=== PATIENT | female | born 1965 | race Caucasian/White ===

== ENCOUNTER 2018-11-26 15:00 | Outpatient (CLI) | payer OTHER ==
[2011-05-18 09:34] VITALS: BMI 33.6
== END 2018-11-26 15:30 | disposition home or self-care (01) ==
LOC: D.MAMMO 15:00
PROVIDERS: ATTEND Family Medicine
DX: N63.21 Unspecified lump in the left breast, upper outer quadrant (principal)

== ENCOUNTER → 2019-09-02 10:49 | Outpatient (CLI) | payer OTHER ==
[2011-05-18 09:34] VITALS: BMI 33.6
== END | disposition home or self-care (01) ==
LOC: D.MRI 08-29 11:30
PROVIDERS: ATTEND Family Medicine
DX: S46.001A Unspecified injury of muscle(s) and tendon(s) of the rotator cuff of right shoulder, initial encounter (principal)

== ENCOUNTER 2019-10-10 09:35 | Day surgery (SDC) | payer OTHER ==
[2011-05-18 09:34] VITALS: Ht 170.2 cm; Wt 98.9 kg
--- NOTE | 2019-10-08 10:22 | NUR ---
hr-80 t- 98.1o pox- 93% bp la- 149/81
[2019-10-08 10:51] LABS: HEMATOCRIT 43.8 % (36.0-48.0); HEMOGLOBIN 14.9 g/dL (12-16); MCH 31.4 pg (26.0-34.0); MCV 92.4 fL (80.0-100.0); MEAN PLATELET VOLUME 8.8 fL (7.4-10.4); RBC 4.74 10x6/uL (4.00-5.40); RDW 12.5 % (11.5-14.5); WBC 7.2 10x3/uL (4.8-10.8)
[2019-10-08 10:58] LABS: ANION GAP 12.5 mmol/L (8-16); CALCIUM 9.2 mg/dL (8.5-10.1); CARBON DIOXIDE 26.5 mmol/L (21.0-32.0); CREATININE - SERUM 0.9 mg/dL (0.6-1.3)
[2019-10-08 11:16] LABS: PLATELET COUNT 53 10x3/uL (130-400)
[2019-10-08 12:08] LABS: PLATELET ESTIMATE DECREASED
[~2019-10-10] VITALS: Ht 170.2 cm; Wt 98.9 kg
[~2019-10-10 09:35] MED LIST: CELEXA40 MG PO; COZAAR25 MG PO; DULERA 100 MCG8.8 GM INH; GLUCOPHAGE1000 MG PO; NORVASC10 MG PO; PRAVACHOL20 MG PO; TEMAZEPAM30 MG PO
--- NOTE | 2019-10-10 10:28 | NUR ---
SURGERY CANCELLED DUE TO LOW PLATELET COUNT. SPOKE WITH ADRIENNE AT DR CRUZ OFFICE. THEY WILL GET HER SET UP WITH DR ARNDT TO DETERMINE REASON FOR PLATELET COUNT BEFORE DOING SURGERY.
== END 2019-10-10 10:22 | disposition home or self-care (01) ==
LOC: D.OPS 09:35 → D.PAN 10:40 → D.OPS 10:45 → D.PAN 12:00 → D.OPS 12:00
PROVIDERS: Anesthesiology; ATTEND Orthopaedic Surgery
DX: M75.101 Unspecified rotator cuff tear or rupture of right shoulder, not specified as traumatic (principal); Z53.9 Procedure and treatment not carried out, unspecified reason

== ENCOUNTER 2019-11-12 08:35 | Day surgery (SDC) | payer OTHER ==
[~2019-11-12] VITALS: Ht 170.2 cm; Wt 94.5 kg
[2019-11-12] MEDS ORDERED: VITAMIN B-121000 MCG PO (10:06)
[2019-11-12 10:08] LABS: EOSINOPHILS 3.9 % (0-7); HEMATOCRIT 43.4 % (36.0-48.0); HEMOGLOBIN 15.1 g/dL (12-16); IMMATURE GRANULOCYTES 0.3 % (0-5); MCH 31.9 pg (26.0-34.0); MCHC 34.8 g/dL (31.0-37.0); MCV 91.8 fL (80.0-100.0); MONOCYTES 5.7 % (2-11); NEUTROPHILS 57.1 % (40-80); PLATELET COUNT 54 10x3/uL (130-400); RBC 4.73 10x6/uL (4.00-5.40); RDW 12.9 % (11.5-14.5); WBC 7.2 10x3/uL (4.8-10.8)
[2019-11-12 10:09] VITALS: BP 147/81; Ht 170.2 cm; Wt 94.5 kg
[2019-11-12 10:09] LABS: PLATELET ESTIMATE DECREASED
[2019-11-12 10:12] LABS: APTT 28.4 SECONDS (22.8-39.4); INR 0.9 (0.85-1.17); PROTIME 12.1 SECONDS (11.6-15.0)
[2019-11-12 10:13] LABS: CALC OSMOLALITY 283 mosm/kg (275-300); CALCIUM 8.5 mg/dL (8.5-10.1); CARBON DIOXIDE 28.2 mmol/L (21.0-32.0); CHLORIDE - SERUM 103 mmol/L (98-107); CREATININE - SERUM 0.8 mg/dL (0.6-1.3); GLUCOSE 166 mg/dL (74-106); POTASSIUM - SERUM 4.3 mmol/L (3.5-5.1); SODIUM 140 mmol/L (136-145); UREA NITROGEN 15 mg/dL (7-18); eGFR NON AFRICAN AMERICAN 78 mL/min (90-120)
--- NOTE | 2019-11-12 14:02 | NUR ---
1400 IV REMOVED 1345 RECIEVED A LUNCH TRAY AND ATE WELL. PT INPATIENT TO GO HOME. DRESSING CDI DENIES PAIN AT THIS TIME. INSTRUCTIONS GIVEN
--- NOTE | 2019-11-12 15:07 | NUR ---
1445 PT WALKED OUT BEFORE HER DISCHARGE TIME OF 1500. IV REMOVED AND INSTRUCTIONS GIVEN
== END 2019-11-12 14:45 | disposition home or self-care (01) ==
LOC: D.OPS 08:35
PROVIDERS: Radiology Vascular & Interventional Radiology; ATTEND Internal Medicine Hematology & Oncology
DX: D69.49 Other primary thrombocytopenia (principal); I10 Essential (primary) hypertension; E78.5 Hyperlipidemia, unspecified; J44.9 Chronic obstructive pulmonary disease, unspecified; E11.9 Type 2 diabetes mellitus without complications; Z79.84 Long term (current) use of oral hypoglycemic drugs; Z72.0 Tobacco use

== ENCOUNTER 2019-11-26 10:05 | Outpatient (CLI) | payer OTHER ==
[~2019-11-26] VITALS: Ht 170.2 cm; Wt 93.2 kg
[~2019-11-26 10:05] MED LIST changes: +VITAMIN B-121000 MCG PO
[2019-11-26 10:44] VITALS: BP 132/71; Ht 170.2 cm; Wt 93.2 kg
[2019-11-26 12:36] LABS: BASOPHILS 0.8 % (0-2); EOSINOPHILS 3.2 % (0-7); HEMATOCRIT 40.9 % (36.0-48.0); IMMATURE GRANULOCYTES 0.4 % (0-5); LYMPHOCYTES 34.6 % (15-50); MCH 31.7 pg (26.0-34.0); MCHC 34.2 g/dL (31.0-37.0); MCV 92.7 fL (80.0-100.0); MEAN PLATELET VOLUME 8.8 fL (7.4-10.4); MONOCYTES 6.9 % (2-11); NEUTROPHILS 54.1 % (40-80); RBC 4.41 10x6/uL (4.00-5.40); RDW 12.9 % (11.5-14.5); WBC 7.7 10x3/uL (4.8-10.8)
[2019-11-26 12:37] LABS: PLATELET COUNT 106 10x3/uL (130-400)
--- NOTE | 2019-11-26 13:42 | NUR ---
1225 LAB ORDERED FOR 12NOOM LAB HERE AT 1225 LAB DRAWN. PT INPATIENT TO GET HOME. IV REMOVED AND PRESSURE HELD INSTRUCTIONS GIVEN.
== END 2019-11-26 12:25 | disposition home or self-care (01) ==
LOC: D.OPS 10:05
PROVIDERS: ATTEND Internal Medicine Hematology & Oncology
DX: D69.49 Other primary thrombocytopenia (principal)

== ENCOUNTER 2019-12-12 07:27 | Day surgery (SDC) | payer OTHER ==
[2019-12-10 10:02] LABS: ANION GAP 13.2 mmol/L (8-16); CALCIUM 9.3 mg/dL (8.5-10.1); CARBON DIOXIDE 26.6 mmol/L (21.0-32.0); CREATININE - SERUM 1.1 mg/dL (0.6-1.3); POTASSIUM - SERUM 3.8 mmol/L (3.5-5.1)
[2019-12-10 10:10] LABS: MCH 31.7 pg (26.0-34.0); MCHC 34.1 g/dL (31.0-37.0); MEAN PLATELET VOLUME 9.4 fL (7.4-10.4); RBC 4.73 10x6/uL (4.00-5.40); RDW 12.6 % (11.5-14.5); WBC 9.5 10x3/uL (4.8-10.8)
[~2019-12-12] VITALS: Ht 170.2 cm; Wt 98.9 kg
[2019-12-12 08:06] VITALS: BP 141/89; Ht 170.2 cm; Wt 98.9 kg
[2019-12-12 08:52] LABS: BASOPHILS 1.3 % (0-2); HEMATOCRIT 44.1 % (36.0-48.0); IMMATURE GRANULOCYTES 0.3 % (0-5); MCH 31.3 pg (26.0-34.0); MCV 91.9 fL (80.0-100.0); MEAN PLATELET VOLUME 9.5 fL (7.4-10.4); MONOCYTES 7.2 % (2-11); NEUTROPHILS 49.2 % (40-80); RDW 12.8 % (11.5-14.5)
[2019-12-12 09:01] LABS: PLATELET COUNT 82 10x3/uL (130-400); WBC 6.8 10x3/uL (4.8-10.8)
[2019-12-12 14:17] LABS: PLATELET ESTIMATE DECREASED
[2019-12-12 14:18] LABS: ROULEAUX OCC
--- NOTE | 2019-12-12 14:51 | NUR ---
IV D/C'D WITH CANNULA INTACT, PRESSURE HELD AND DRSG PLACED. SURGICAL DRSG ARE CDI AND ARM IS IN SLING WITH WAIST BELT ADJUSTED. NO S/S OF BLEEDING. PT REPORTS 0/10 PAIN.
--- NOTE | 2019-12-14 12:50 | OP ---
PATIENT NAME: TOBY GRAHAM MEDICAL RECORD: [id number] :61 LOCATION:[facility] ADMISSION DATE: SURGEON: GAVIN CRUZ DO DATE OF OPERATION: 12/12/2019 PROCEDURE PERFORMED: Right shoulder arthroscopy with rotator cuff repair. Distal clavicle excision and subacromial decompression and bicep tenodesis. PREOPERATIVE DIAGNOSIS: Right shoulder rotator cuff repair, right rotator cuff tear full thickness, bicep SLAP tear, subacromial impingement, and acromioclavicular joint arthritis POSTOPERATIVE DIAGNOSIS: Right shoulder rotator cuff repair, right rotator cuff tear full thickness, bicep SLAP tear, subacromial impingement, and acromioclavicular joint arthritis. SURGEON: Gavin Cruz DO GLUE JOINTER OPERATOR: Clarence Younger, certified merchandising assistant. INDICATIONS: Ms. Graham is a 54-year-old female who has had this right shoulder rotator cuff tear for quite some time, tried to do in September, but she had low platelets. She was seen by hematology and cleared for surgery. I did transfuse her 2 units of platelets prior to surgery as they were 67. I tried to get her above 70. Recheck after the first one was 82, we were okay with surgery. She received a block by anesthesia in the preoperative area. She is aware of the risk of infection, bleeding, damage to nerves and vessels, need for further surgery, continued pain, arthrofibrosis of the shoulder. retear of the rotator cuff tendon and failure of implants and she has signed the consent. DESCRIPTION OF PROCEDURE: The patient was taken to the operative suite, laid in the left lateral decubitus position with the right shoulder up. She was given 900 mg of clindamycin and the right shoulder was prepped and draped in sterile fashion after she was sedated and LMA was placed. The shoulder was then entered with an 18-gauge spinal needle posteriorly and the joint was inflated with 60 mL normal saline. I then established a posterior portal with an 11-blade scalpel. Trocar was entered into the joint. I entered the camera into the joint and established anterior portal with an 18-gauge spinal needle and an 11-blade scalpel. Trocar was then entered into the anterior portal and then brought in the burner and saw the flap tear and did a biceps tenotomy. At that point, checked the rotator cuff and the supraspinatus was indeed torn full thickness seen on the tip, the side of articular cartilage was in good repair. Subscapularis was intact as well as the infraspinatus. I then went to the subacromial space, established a lateral portal with an 18-gauge spinal needle and 11-blade scalpel and trocar entered the joint and then did subacromial decompression through the lateral portal and removed the spur on the acromion distal lateral and then did a distal clavicle excision of the anterior portal opening up the AC joint to approximately 7 mm. I then debrided the tear of the supraspinatus through the lateral portal with a shaver. I then opened up the lateral portal with a #15 blade scalpel and made careful dissection down with a 2 Army-Oran's to the tear. I then put in 2 anchors medial and then through the tendon brought over to lateral, two lateral row anchors. I then put a Regeneten implant on the tear and stapled it into place. I then addressed the anterior humerus for the bicep tenodesis site and made an incision and carefully dissected out the long head biceps tendon and put a unicortical hole in the OPERATIVE REPORT [id number] TOBY GRAHAM humerus and then put in a JuggerKnot anchor and cinched down the long head of the biceps tendon down through the loop and then cut the excess suture and sutured back through the tendon and sutured that down and then we tied that down and removed the excess tendon and suture, irrigated that site and the open rotator cuff side and these were then closed by Clarence Younger, certified surgical library media assistant with 2-0 Vicryl inverted fashion, 4-0 Monocryl ran on the skin and the anterior and posterior portal sites were closed with 4-0 Monocryl in inverted interrupted fashion. Dermabond glue was then placed on all the sites. She was dressed with Telfa and Tegaderm awakened and taken to recovery in stable condition. BLOOD LOSS: Minimal. She was put in a sling prior to going to recovery. She was taken to recovery in stable condition. BLOOD LOSS: Minimal. COMPLICATIONS: None. TRANSINT:[id number] Voice Confirmation ID: [id number] DOCUMENT ID: [id number] GAVIN CRUZ DO at 1250 CC: [id number] DICTATION DATE: 12/12/19 1749 DIRECTOR OF TAX SERVICES: 12/13/19 0608 [facility] [place] 12/12/19 [place] [id number] [place] [id number]
== END 2019-12-12 14:35 | disposition home or self-care (01) ==
LOC: D.PAN 07:27 → D.OPS 15:45 → D.PAN 15:45
PROVIDERS: Anesthesiology; ATTEND Orthopaedic Surgery
DX: M75.101 Unspecified rotator cuff tear or rupture of right shoulder, not specified as traumatic (principal); S43.431A Superior glenoid labrum lesion of right shoulder, initial encounter; X58.XXXA Exposure to other specified factors, initial encounter; M75.41 Impingement syndrome of right shoulder; M13.811 Other specified arthritis, right shoulder; I10 Essential (primary) hypertension; E11.9 Type 2 diabetes mellitus without complications